=== PATIENT | female | born 1975 | race Caucasian/White ===

== ENCOUNTER 2018-10-10 23:35 | Inpatient (IN) | payer OTHER, MEDICAID ==
[~2018-10-10] VITALS: Ht 165.1 cm; Wt 64.7 kg
[~2018-10-10 23:35] MED LIST: NAPR-1009 PO; OXYC20TA42 PO
--- NOTE | 2018-10-11 | NUR ---
Patient ambulated with stable gait.AAOx4. Speech is clear, speaks in complete sentences. No neuro deficits noted. Patient came in with c/o pain in left flank area. Respiratory even and unlabored, no cough no SOB. No cardiovascular distress noted, all pulses palpable. Patient in bed at lowest position, side rails upx2, call light with in reach. Fall precautions implemented per protocol.
[2018-10-11] MEDS ORDERED: IV D5W-0.45% NS +20 KCL 1,000 ML IV ONE (00:14)
[2018-10-11] MEDS ORDERED: HYDROMORPHONE 1 MG/1 ML DISP.SYRIN IV ONE (00:15)
[2018-10-11] MEDS ORDERED: ONDANSETRON 4 MG/2 ML VIAL IV ONE (00:15)
[2018-10-11] MEDS ORDERED: HYDROMORPHONE 1 MG/1 ML DISP.SYRIN ONE (00:18)
[2018-10-11] MEDS ORDERED: ONDANSETRON 4 MG/2 ML VIAL ONE (00:18)
[2018-10-11 00:27] LABS: BASOPHILS % (AUTO) 0.4 % (0.0-2.0); EOSINOPHILS # (AUTO) 0.1 K/uL (0.0-0.7); EOSINOPHILS % (AUTO) 2.1 % (0.0-7.0); HEMATOCRIT 35.7 % (31.2-41.9); LYMPHOCYTES # (AUTO) 2.8 K/uL (20.0-40.0); LYMPHOCYTES % (AUTO) 45.8 % (20.5-51.5); MEAN CORPUSCULAR HEMOGLOBIN 27.9 uug (24.7-32.8); MEAN CORPUSCULAR HGB CONC 34 g/dL (32.3-35.6); MONOCYTES # (AUTO) 0.4 K/uL (2.0-10.0); MONOCYTES % (AUTO) 6.8 % (0.0-11.0); NEUTROPHILS # (AUTO) 2.8 K/uL (1.8-8.9); NEUTROPHILS % (AUTO) 44.9 % (38.5-71.5); PLATELET COUNT (AUTO) 229 K/uL (179-408); WHITE BLOOD COUNT (AUTO) 6.2 K/uL (3.8-11.8)
[2018-10-11] MEDS ORDERED: HYDROCODONE/APAP 5-325MG TABLET PO PRN (00:30)
[2018-10-11] MEDS ORDERED: ACETAMINOPHEN 650 MG SUPP.RECT RC PRN (00:30)
[2018-10-11] MEDS ORDERED: Z GUARD REMEDY PASTE 57 GM TUBE TOP PRN (00:30)
[2018-10-11] MEDS ORDERED: MAGNESIUM HYDROXIDE 30 ML LIQUID UDC PO PRN (00:30)
[2018-10-11] MEDS ORDERED: ACETAMINOPHEN 325 MG TABLET PO PRN (00:30)
[2018-10-11 00:39] LABS: CARBON DIOXIDE 21 mmol/L (21-32); CHLORIDE 109 mmol/L (98-107); CREATININE 0.7 mg/dL (0.6-1.3); GLUCOSE 87 mg/dL (74-106); POTASSIUM 3.4 mmol/L (3.5-5.1); UREA NITROGEN, BLOOD 12 mg/dL (7-18)
[2018-10-11 00:50] LABS: ALANINE AMINOTRANSFERASE 20 U/L (14-59); ALKALINE PHOSPHATASE 63 U/L (50-136); ASPARTATE AMINOTRANSFERASE 12 U/L (15-37); BILIRUBIN,DIRECT 0.1 mg/dL (0.0-0.2); BILIRUBIN,TOTAL 0.4 mg/dL (0.2-1.0); LIPASE 319 U/L (73-393)
[2018-10-11] MEDS ORDERED: HYDR100C2 PO (00:55)
[2018-10-11] MEDS ORDERED: ESCI20TA PO (00:56)
[2018-10-11] MEDS ORDERED: PRAZ5CAP2 PO (00:56)
[2018-10-11] MEDS ORDERED: TOPI100T38 PO (00:57)
--- NOTE | 2018-10-11 01:07 | NUR ---
Patient in bed, IVF infusing well, no kinks. NAD, VSS
--- NOTE | 2018-10-11 01:46 | NUR ---
PT WAS BROUGHT IN TO FLOOR VIA GURNEY. ADMITTED TO MED SURG UNDER CARE OF OLIVIA BRADSHAW NP. DX PANCREATITIS/ ABD PAIN. INITIATED ADMISSION ASSESSMENT. BELONGING LISTS REVIEWED. SAFETY MEASURES RENDERED.
--- NOTE | 2018-10-11 02:00 | NUR ---
Patient transferred to [facility] via gurney, in stable condition.
--- NOTE | 2018-10-11 03:30 | NUR ---
PT C/O ANXIETY/ RESTLESSNESS. LEEANN BARRAGAN MADE AWARE , BUT NOT MED ORDER AT THIS TIME BECAUSE SHE KNOWS THIS PT FROM [facility]. Addendum: 10/11/18 at 0649 by ZOEY CAGLE RN *NO MED ORDER AT THIS TIME. NORCO WAS GIVEN FOR C/O ABDOMINAL PAIN. PT SLEPT ON AND OFF DURING SHIFT.
--- NOTE | 2018-10-11 03:35 | NUR ---
PER YUNG MICHAELS TO GIVE NORCO.
[2018-10-11] MEDS: IV NS 1000 ML 1,000 ML IV PRN ×3 (04:42→18:42)
[2018-10-11 06:00] LABS: BASOPHILS % (AUTO) 0.5 % (0.0-2.0); EOSINOPHILS # (AUTO) 0.1 K/uL (0.0-0.7); EOSINOPHILS % (AUTO) 2.7 % (0.0-7.0); HEMATOCRIT 33.1 % (31.2-41.9); HEMOGLOBIN 11.2 g/dL (10.9-14.3); LYMPHOCYTES # (AUTO) 2.5 K/uL (20.0-40.0); LYMPHOCYTES % (AUTO) 45.8 % (20.5-51.5); MEAN CORPUSCULAR HGB CONC 34 g/dL (32.3-35.6); MONOCYTES # (AUTO) 0.4 K/uL (2.0-10.0); MONOCYTES % (AUTO) 6.5 % (0.0-11.0); NEUTROPHILS # (AUTO) 2.4 K/uL (1.8-8.9); NEUTROPHILS % (AUTO) 44.5 % (38.5-71.5); PLATELET COUNT (AUTO) 201 K/uL (179-408); RED BLOOD CELL COUNT(AUTO) 3.99 MIL/uL (3.63-4.92); WHITE BLOOD COUNT (AUTO) 5.5 K/uL (3.8-11.8)
[2018-10-11 06:03] LABS: CARBON DIOXIDE 22 mmol/L (21-32); CHLORIDE 108 mmol/L (98-107); CREATININE 0.7 mg/dL (0.6-1.3); GLUCOSE 144 mg/dL (74-106); POTASSIUM 3.7 mmol/L (3.5-5.1); UREA NITROGEN, BLOOD 12 mg/dL (7-18)
[2018-10-11 06:04] VITALS: BP 106/71
[2018-10-11 06:09] LABS: ALANINE AMINOTRANSFERASE 18 U/L (14-59); ALKALINE PHOSPHATASE 56 U/L (50-136); ASPARTATE AMINOTRANSFERASE < 5 U/L (15-37); BILIRUBIN,TOTAL 0.3 mg/dL (0.2-1.0); LIPASE 231 U/L (73-393); MAGNESIUM 1.8 mg/dL (1.8-2.4); PHOSPHOROUS 2.1 mg/dL (2.5-4.9); TOTAL PROTEIN, SERUM 6.1 g/dL (6.4-8.2)
[2018-10-11 06:16] LABS: THYROID STIMULATING HORMONE 2.821 mIU/mL (0.358-3.740)
[2018-10-11 06:36] LABS: CHOLESTEROL 215 mg/dL (<200); HDL CHOLESTEROL 59 mg/dL (40-60); TRIGLYCERIDES 44 MG/DL (30-150)
--- NOTE | 2018-10-11 07:25 | NUR ---
RECEIVED PATIENT INTO BED AWAKE ALERT AND ORIENTED REMAIN NPO EXCEPT MEDICATIONS ORDERED PATIENT AWARE REMAIN ON IVF ORDERED WITH NO S/S OF INFILTERATION ON SITE CALL LIGHTS AND PERSONAL BELONGINGS ARE WITHIN EASY REACH MADE COMFORTABLE WILL CONTINUE TO OBSERVE.
--- NOTE | 2018-10-11 08:14 | NUR ---
CALL RECEIVED FROM DR DARNELL RE THE NOC RN HAD INFORMED HIM THAT PATIENT IS IN PAIN AND NORCO ORDERED WAS NOT HELPFUL WITH NEW ORDERS AND NOTED.
[2018-10-11] MEDS ORDERED: MORPHINE SULFATE 2 MG/1 ML DISP.SYRIN IM PRN (08:15)
[2018-10-11] MEDS: PANTOPRAZOLE SODIUM 40 MG VIAL IV SCH (08:32)
[2018-10-11] MEDS: MORPHINE SULFATE 2 MG/1 ML DISP.SYRIN IV PRN ×3 (08:32→20:20)
[2018-10-11 11:25] VITALS: BP 94/58
--- NOTE | 2018-10-11 13:00 | NUR ---
JASE VELASQUEZ AWARE THAT PATIENT HAS LOW SYSTOLIC AND ASKING FOR PAIN MEDICATIONS STATED OKAY WILL SEE PATIENT
--- NOTE | 2018-10-11 14:40 | NUR ---
NEW ORDER NOTED FOR PHYSICIAN CONSULT AND PAMELA LEWIS ALSO PLACED ORDERS.
[2018-10-11 15:05] VITALS: BP 105/72
[2018-10-11] MEDS ORDERED: NEUTRA PHOS PACKET PO ONE ×2 (15:15→23:00)
[2018-10-11] MEDS: ONDANSETRON 4 MG/2 ML VIAL IV PRN ×2 (15:31→23:35)
--- NOTE | 2018-10-11 16:16 | NUR ---
PAMELA PAINTING STATED TO CANCEL THE ULTRASOUND OF THE ABDOMEN THAT SHE ORDERED TO INSTEAD ORDER ULTRA SOUND OF THE ABDOMEN CALLED RADIOLOGY DEPT AND NOTIFIED THEM SPOKE WITH MIKA.
[2018-10-11] MEDS ORDERED: DIATR MEGLU/DIATRIZOATE SODIUM 30 ML SOLUTION ONE ×2 (16:27)
--- NOTE | 2018-10-11 16:58 | NUR ---
SMALL BOWEL FOLLOW THROUGH STARTED ORDERED.PAMELA STATED TO INFORM HER OF THE RESULT WHEN AVAILABLE
--- NOTE | 2018-10-11 17:30 | NUR ---
FIRST PHASE OF THE SMALL BOWEL FOLLOW THRUGH FINISHED AND PER THE TECH WILL SEND THIS ORIGINAL FILM TO THE RADIOLOGIST AND WILL LET HIM DECIDE IF MORE FILMS ARE NEEDED.
--- NOTE | 2018-10-11 18:28 | NUR ---
SMALL BOWEL FOLLOW THROUGH STILL IN PROGRESS UNABLE TO GIVE PATIENT HER NEUTROPHOS AWAITING FOR COMPLETION WILL ENDORSED TO THE NEXT SHIFT TO GIVE TO HER SOON ABLE
[2018-10-11 21:40] VITALS: BP_SYST 120; BP_SYST 174; BP_DIAS 81; BP_DIAS 97
--- NOTE | 2018-10-11 22:20 | NUR ---
PLACE A CALL TO EXCHANGE TO PAGE PAMELA YATES GI LEFT MESSAGE REGARDING RESULT OF SMALL BOWEL FOLLOW UP THRU.
[2018-10-11 22:38] LABS: *OCCULT BLOOD STOOL NEGATIVE (NEGATIVE)
--- NOTE | 2018-10-11 23:12 | NUR ---
NEUTRA PHOS GIVEN ORDERED.
--- NOTE | 2018-10-11 23:33 | NUR ---
JASE GILLILAND VISUAL LEAD IN THE UNIT REPORT REGARDING RESULT OF SMALL BOWEL FOLLOW THRU TEST/XRAY. THE PATIENT REQUEST FOR SLEEPING PILL AND ANXIETY MEDICATIONS. NOTIFY JASE GILLILAND VISUAL LEAD THAT PATIENT STATED "SHE LIKE JUMPING OUT OF HER SKIN" AND CANNOT HELP IT. PATIENT WAS GIVEN PAIN MEDICATION ORDERED, WILL CONT TO MONITOR.
[2018-10-12] MEDS: TEMAZEPAM 15 MG CAPSULE PO PRN (00:20)
[2018-10-12] MEDS: MORPHINE SULFATE 2 MG/1 ML DISP.SYRIN IV PRN ×6 (00:32→23:41)
[2018-10-12] MEDS: IV NS 1000 ML 1,000 ML IV PRN ×4 (02:30→23:30)
--- NOTE | 2018-10-12 03:06 | NUR ---
COMPLAIN OF BURNING STOMACH, NOTIFY LEEANN Davila NP WITH ORDER TUMS PRN.
[2018-10-12] MEDS ORDERED: CALCIUM CARBONATE 500 MG TAB.CHEW PO PRN (03:15)
[2018-10-12] MEDS: CALCIUM CARBONATE 500 MG TAB.CHEW PO PRN ×2 (03:20→21:56)
[2018-10-12 06:06] VITALS: BP 120/75
[2018-10-12 06:50] LABS: CREATININE 0.7 mg/dL (0.6-1.3); PHOSPHOROUS 2.9 mg/dL (2.5-4.9); POTASSIUM 3.6 mmol/L (3.5-5.1)
[2018-10-12] MEDS: PANTOPRAZOLE SODIUM 40 MG VIAL IV SCH (09:07)
--- NOTE | 2018-10-12 09:47 | NUR ---
RECEIVED A CALL BACK FROM THE GI DR DURAN NOTIFIED HIM OF THE SMALL BOWEL THROUGH RESULTS STATED OK JUST STAET PATIENT ON CLEAR LIQUIDS DAIE TODAY PATIENT AWARE.
[2018-10-12] MEDS: ONDANSETRON 4 MG/2 ML VIAL IV PRN ×3 (10:15→21:59)
--- NOTE | 2018-10-12 10:15 | NUR ---
PATIENT CONTINUES TO REQUEST AND STATING THAT SHE IS IN A LOT OF PAIN MEDICATED ORDERED MADE COMFORTABLE AND WILL CONTINUE TO OBSERVE.
[2018-10-12 11:02] VITALS: BP 116/72
[2018-10-12] MEDS ORDERED: HYDROXYZINE PAMOATE 25 MG CAPSULE PO PRN (11:17)
[2018-10-12] MEDS: TOPIRAMATE 100 MG TABLET PO SCH ×2 (11:28→22:34)
[2018-10-12] MEDS: ESCITALOPRAM OXALATE 10 MG TABLET PO SCH (11:28)
[2018-10-12] MEDS ORDERED: HYDROXYZINE PAMOATE 25 MG CAPSULE PO SCH (13:00)
[2018-10-12] MEDS ORDERED: HYDROXYZINE PAMOATE PO SCH (13:00)
--- NOTE | 2018-10-12 14:13 | NUR ---
NEW ORDERS NOTED PSYCHIATRIST DR RANDLE TO SEE PATIENT..PATIENT AWARE.
[2018-10-12 15:05] VITALS: BP 108/70
--- NOTE | 2018-10-12 17:30 | NUR ---
patient was seen and examined by pia bravo and gi dr guzmán with no new orders noted at this time.
[2018-10-12 19:49] VITALS: BP 101/60
[2018-10-12] MEDS ORDERED: PRAZOSIN HCL 1 MG CAPSULE PO SCH (21:00)
[2018-10-12] MEDS ORDERED: PRAZOSIN HCL 5 MG PO SCH (21:00)
--- NOTE | 2018-10-12 21:30 | NUR ---
NOTIFY DR. GAMA THAT PATIENT CANNOT TOLERATE CLEAR LIQUID DIET, VOMIT FLUIDS SHE DRANK, ZOFRAN WAS GIVEN ALREADY. MD HAS NO NEW ORDER. INSTRUCTED PATIENT TO STOP DRINKING ANY FLUIDS AT THIS TIME. WILL CONT TO MONITOR.
--- NOTE | 2018-10-12 22:09 | NUR ---
PATIENT AWAKE AMBULATE TO FATHER ROOM, STAY WITH FATHER FOR FEW MINUTES. PATIENT HAS NO S/S OF PAIN NOR DISCOMFORT, NO FURTHER EPISODE OF VOMITING AT THIS TIME. CONT TO MONITOR.
[2018-10-13] MEDS: IV NS 1000 ML 1,000 ML IV PRN ×2 (02:00→06:45)
[2018-10-13] MEDS: TEMAZEPAM 15 MG CAPSULE PO PRN (02:59)
--- NOTE | 2018-10-13 03:05 | NUR ---
PATIENT COMPLAIN OF CHEST PRESSURE DUE TO PATIENT HAS TOO MANY GAS, BUT PATIENT ABLE TO BURP MOST OF THE GAS. PATIENT WAS MEDICATED FOR PAIN, AND FOR GAS. HOWEVER STILL COMPLAIN OF GAS CAUSING CHEST PRESSURE. NOTIFY CHIP Davila QUALITY CONTROL ENGINEERING TECHNICIAN WITH ORDER OF EKG, WITH RESULTED TO WNL. QUALITY CONTROL ENGINEERING TECHNICIAN ORDERED TO CONTINUE TO MONITOR. PATIENT ALERT ORIENTED NO S/S OF DISTRESS.
[2018-10-13] MEDS: CALCIUM CARBONATE 500 MG TAB.CHEW PO PRN (03:27)
[2018-10-13] MEDS: ONDANSETRON 4 MG/2 ML VIAL IV PRN (06:44)
--- NOTE | 2018-10-13 07:20 | NUR ---
PATIENT SLEPT INTERMITTENTLY, STAY IN BED, V/S WNL. CONT TO PROVIDE PAIN MANAGEMENT, ZOFRAN FOR NAUSEA. CONT INSTRUCT PATIENT TO HOLD LIQUID FOR NOW TILL FURTHER ORDER. CONT TO MONITOR ENDORSED TO NEXT SHIFT.
--- NOTE | 2018-10-13 07:40 | NUR ---
PATIENT IS RESTING IN BED WITH IVF ORDERED WITH NO S/S OF INFILTERATION ON SITE PATIENT SEEMS COMFORTABLE.SEEMS TO HAVE SETTLED SOME FROM EVENTS FROM LAST NITE CALL LIGHTS AND PERSONAL BELONGINGS PLACED WITHIN EASY REACH MADE COMFORTABLE AND WILL CONTINUE TO OBSERVE AND PROVIDE COMFORT.
[2018-10-13] MEDS: ESCITALOPRAM OXALATE 10 MG TABLET PO SCH (08:19)
[2018-10-13] MEDS: PANTOPRAZOLE SODIUM 40 MG VIAL IV SCH (08:19)
[2018-10-13] MEDS: TOPIRAMATE 100 MG TABLET PO SCH (08:19)
[2018-10-13] MEDS: MORPHINE SULFATE 2 MG/1 ML DISP.SYRIN IV PRN (08:19)
[2018-10-13] MEDS ORDERED: Medication Not On Formulary EA (Escitalopram Oxalate (Lexapro) 20 MG) PO SCH (09:00)
[2018-10-13] MEDS ORDERED: SIMETHICONE 40 MG/0.6 ML, 30ML BOTTLE PO PRN (10:15)
[2018-10-13] MEDS ORDERED: OMEP20TA5 PO (10:19)
[2018-10-13] MEDS ORDERED: SIME80TA15 PO (10:20)
--- NOTE | 2018-10-13 10:59 | NUR ---
PATIENT SEEN AND EXAMINED BY ASTON PAINTING WITH NEW ORDERS AND NOTED.
[2018-10-13 11:23] VITALS: BP 104/71
--- NOTE | 2018-10-13 13:30 | NUR ---
DISCHARGE ORDER NOTED FROM LOLIS ALCANTARA FIREWORKS ASSEMBLY SUPERVISOR AND THE PROCESS COORDINATOR SPOKE WITH PATIENT AND SHE IS OKAY TO BE DISCHARGED AND WILL FOLLOW UP WITH HER PRIMARY DOCTOR AND THE GI FOR OUT PATIENT WORK UP .
--- NOTE | 2018-10-13 15:00 | NUR ---
[place]OCK DISCONTINUED AND PATIENT WAS GOING TO WAIT FOR HER FATHER WHO IS ALSO A PATIENT HERE TO RIDE TOGETHER BUT NOW STATED WANT TO LEAVE BECAUSE HER FATHER DOES NOT HAVE HIS CLOTHING HERE YET.SO PATIENT DISCHARGED WITH ALL OF HER PERSONAL BELONGINGS AND PRESCRIPTIONS AND WAS EDUCATED [facility] PATIENT ESCORTED TO THE LOBBY WHERE SHE CALLED FOR THE UBER TO PICK HER UP.
== END 2018-10-13 15:00 | disposition home or self-care (01) | DRG 282 ==
LOC: ER 23:35 → MEDSURG3 10-11 01:25
PROVIDERS: ADMIT Registered Nurse; ATTEND Hospitalist
DX: K85.90 Acute pancreatitis without necrosis or infection, unspecified (principal); F33.2 Major depressive disorder, recurrent severe without psychotic features; E78.5 Hyperlipidemia, unspecified; D18.03 Hemangioma of intra-abdominal structures; E78.00 Pure hypercholesterolemia, unspecified; F41.9 Anxiety disorder, unspecified; E87.6 Hypokalemia; K58.9 Irritable bowel syndrome, unspecified; E83.39 Other disorders of phosphorus metabolism; K86.1 Other chronic pancreatitis; K21.9 Gastro-esophageal reflux disease without esophagitis; Z87.19 Personal history of other diseases of the digestive system; Z76.5 Malingerer [conscious simulation]
CPT/HCPCS: 36415; 74250; 83690; 83735; 84100; 84443; 85025; 93005; A4663; C9113; G0378; J1170; J2270; J2405; J7030; Q9963

== ENCOUNTER 2022-04-28 15:05 | Emergency (ER) | payer MEDICAID, OTHER ==
[~2022-04-28] VITALS: Ht 152.4 cm; Wt 59.0 kg
[~2022-04-28 15:05] MED LIST changes: +ESCI20TA PO; +HYDR100C2 PO; -NAPR-1009 PO; +OMEP20TA5 PO; -OXYC20TA42 PO; +PRAZ5CAP2 PO; +SIME80TA15 PO; +TOPI100T38 PO
[2022-04-28 17:12] LABS: HEMATOCRIT 36.1 % (31.2-41.9); MEAN CORPUSCULAR HEMOGLOBIN 27.8 uug (24.7-32.8); MEAN CORPUSCULAR VOLUME 83.6 fL (75.5-95.3); PLATELET COUNT (AUTO) 222 K/uL (179-408)
[2022-04-28 17:16] LABS: CARBON DIOXIDE 25 mmol/L (21-32); CHLORIDE 106 mmol/L (98-107); CREATININE 0.7 mg/dL (0.6-1.3); GLUCOSE 91 mg/dL (74-106); POTASSIUM 3.5 mmol/L (3.5-5.1); UREA NITROGEN, BLOOD 14 mg/dL (7-18)
[2022-04-28 17:27] LABS: ALANINE AMINOTRANSFERASE 156 U/L (14-59); ALKALINE PHOSPHATASE 148 U/L (50-136); ASPARTATE AMINOTRANSFERASE 39 U/L (15-37); BILIRUBIN,TOTAL 0.3 mg/dL (0.2-1.0)
[2022-04-28 18:52] LABS: *URINE HCG, QUAL NEGATIVE (NEGATIVE)
--- NOTE | 2022-04-28 19:03 | NUR ---
Recieved report from Lucía RAINEY.
[2022-04-28] MEDS ORDERED: BENZ-13 PO (19:11)
--- NOTE | 2022-04-28 19:19 | NUR ---
Patient discharged to home in stable condition. Written and verbal after care instructions given. Patient verbalizes understanding of instructions. Stressed follow up or return to ER for worsening s/s.
[2022-04-28 19:20] VITALS: BP 122/68
== END 2022-04-28 19:20 | disposition home or self-care (01) ==
LOC: ER 15:05
DX: U07.1 COVID-19 (principal); K21.9 Gastro-esophageal reflux disease without esophagitis; Z84.1 Family history of disorders of kidney and ureter; Z79.899 Other long term (current) drug therapy; R74.8 Abnormal levels of other serum enzymes; R94.31 Abnormal electrocardiogram [ECG] [EKG]
CPT/HCPCS: 36415; 71045; 84484; 84703; 85025; 93005; A4663

== ENCOUNTER 2022-05-14 05:39 | Emergency (ER) | payer MEDICAID, OTHER ==
[~2022-05-14] VITALS: Ht 165.1 cm; Wt 63.5 kg
[~2022-05-14 05:39] MED LIST changes: +BENZ-13 PO
[2022-05-14] MEDS ORDERED: GUAIFENESIN/CODEINE 5 ML LIQUID UDC PO ONE (06:15)
[2022-05-14] MEDS ORDERED: GUAIFENESIN/CODEINE 5 ML LIQUID UDC ONE (06:20)
[2022-05-14] MEDS ORDERED: ACETAMINOPHEN 325 MG TABLET PO ONE (06:45)
[2022-05-14] MEDS ORDERED: ACETAMINOPHEN 325 MG TABLET ONE (07:11)
[2022-05-14] MEDS ORDERED: GUAI600T53 PO (07:47)
[2022-05-14] MEDS ORDERED: ALBU6.7H9 INH (07:47)
--- NOTE | 2022-05-14 07:58 | NUR ---
Patient evaluated by Dr. Rdz. Patient was discharged to home. Discharge instructions given to the patient.
== END 2022-05-14 08:00 | disposition home or self-care (01) ==
LOC: ER 05:45
DX: B34.9 Viral infection, unspecified (principal); R05.9 Cough, unspecified; Z20.822 Contact with and (suspected) exposure to COVID-19; Z84.1 Family history of disorders of kidney and ureter; Z86.16 Personal history of COVID-19
CPT/HCPCS: 71045; 87400; A4663

== ENCOUNTER 2022-07-12 12:52 | Emergency (ER) | payer MEDICAID ==
[~2022-07-12] VITALS: Ht 165.1 cm; Wt 63.5 kg
[~2022-07-12 12:52] MED LIST changes: +ALBU6.7H9 INH; +GUAI600T53 PO
[2022-07-12 13:17] LABS: HEMATOCRIT 38.3 % (31.2-41.9); MEAN CORPUSCULAR HEMOGLOBIN 28.5 uug (24.7-32.8); MEAN CORPUSCULAR VOLUME 84.3 fL (75.5-95.3); PLATELET COUNT (AUTO) 263 K/uL (179-408)
[2022-07-12] MEDS ORDERED: KETOROLAC TROMETHAMINE 15 MG INJ ONE ×2 (13:17→13:20)
[2022-07-12] MEDS ORDERED: ONDANSETRON 4 MG/2 ML VIAL ONE (13:17)
[2022-07-12] MEDS ORDERED: HYDROMORPHONE 1 MG/1 ML DISP.SYRIN ONE ×2 (13:21→15:01)
--- NOTE | 2022-07-12 13:24 | NUR ---
Medicated for pain as ordered, U/S in progress at bedside.
[2022-07-12 13:28] LABS: BILIRUBIN,DIRECT 0.1 mg/dL (0.0-0.2); BILIRUBIN,TOTAL 0.2 mg/dL (0.2-1.0); CREATININE 0.7 mg/dL (0.6-1.3); TOTAL PROTEIN, SERUM 7.8 g/dL (6.4-8.2)
[2022-07-12] MEDS ORDERED: KETOROLAC TROMETHAMINE 15 MG INJ IVP ONE (13:30)
[2022-07-12] MEDS ORDERED: ONDANSETRON 4 MG/2 ML VIAL IV ONE (13:30)
[2022-07-12] MEDS ORDERED: HYDROMORPHONE 1 MG/1 ML DISP.SYRIN IV ONE ×2 (13:30→15:00)
[2022-07-12] MEDS ORDERED: IV NORMAL SALINE 1000 ML BAG IV ONE (13:30)
--- NOTE | 2022-07-12 14:30 | NUR ---
Pt states her pain is improved, 3/[address] CT.
[2022-07-12 15:38] LABS: *BILIRUBIN,URIN NEGATIVE (NEGATIVE); *BLOOD, URINE NEGATIVE (NEGATIVE); *CLARITY,URINE CLEAR (CLEAR); *COLOR,URINE YELLOW (YELLOW); *KETONES,URINE NEGATIVE (NEGATIVE); *UROBILINOGEN,URINE 0.2 E.U./dl (NORMAL); LEUKOCYTE ESTERASE ,URINE NEGATIVE (NEGATIVE); NITRITE, URINE NEGATIVE (NEGATIVE); PH,URINE 5.5 (5.0-8.0); UGLUCOSE NEGATIVE (NEGATIVE)
[2022-07-12] MEDS ORDERED: OMEP40CA21 PO (16:57)
[2022-07-12] MEDS ORDERED: ONDA4TAB5 PO (16:57)
[2022-07-12] MEDS ORDERED: HYDR-4209 PO (16:57)
--- NOTE | 2022-07-12 17:25 | NUR ---
Meet villa in ED - 07/12/22 at 1728 by JEANIE Blood specimens collected by awning hanger helper, urine specimen collected and brought to lab. Pt is eating dinner at this time. Nursing agricultural and forestry supervisor notified for 1:1 sitter. Pending medical clearance and disposition.
--- NOTE | 2022-07-12 17:37 | NUR ---
IV removed. Catheter intact and site benign. Pressure and 4x4 gauze applied to site. No bleeding noted.
[2022-07-12 17:38] VITALS: BP 138/84
== END 2022-07-12 17:39 | disposition home or self-care (01) ==
LOC: ER 12:52
DX: R10.11 Right upper quadrant pain (principal); K76.9 Liver disease, unspecified; Z84.1 Family history of disorders of kidney and ureter; K21.9 Gastro-esophageal reflux disease without esophagitis; Z90.49 Acquired absence of other specified parts of digestive tract
CPT/HCPCS: 99285; 74176; 96374; 76705; 96375; 96361; 80076; 80048; 81003; 83690; 85025; 84702; 36415; 96376; J1885 ×2; J2405; J1170 ×2; J7040; A4663